=== PATIENT | male | born 1950 | race Two or more races ===

== ENCOUNTER 2016-07-16 04:18 | Emergency (ER) | payer SELFPAY ==
[~2016-07-16] VITALS: Ht 177.8 cm; Wt 68.0 kg
--- NOTE | 2016-07-16 04:20 | NUR ---
66 YO MALE BB RA. PT IS ALERT X 3, STATES HE CUT HIS WRIST BECAUSE HE MISSES HIS . PT ADMITS TO DRINKING WINE. PT AMBULATED TO ER BED, SKIN WARM AND DRY, RR EVEN AND UNLABORED. AWAITING ORDERS FROM PROVIDER,
[2016-07-16] MEDS ORDERED: TDAP [DIPH/PERTUSSIS/TET] 0.5 ML VIAL IM ONE ×2 (04:30→06:04)
--- NOTE | 2016-07-16 04:36 | NUR ---
LAB AT BED SIDE FOR BLOOD DRAW
[2016-07-16 04:40] LABS: BASOPHILS # (AUTO) 0.1 /CMM (0.0-0.2); BASOPHILS % (AUTO) 0.8 % (0.0-2.0); EOSINOPHILS # (AUTO) 0.2 /CMM (0.0-0.7); EOSINOPHILS % (AUTO) 1.8 % (0.0-6.0); HEMATOCRIT 40 % (39-51); HEMOGLOBIN 12.8 g/dL (13.5-17.5); LYMPHOCYTES # (AUTO) 1.6 /CMM (0.8-4.8); LYMPHOCYTES % (AUTO) 17.3 % (20.0-44.0); MEAN CORPUSCULAR HEMOGLOBIN 27 PG (26.0-33.0); MEAN CORPUSCULAR HGB CONC 32 g/dl (31.0-36.0); MEAN CORPUSCULAR VOLUME 82 fL (80-96); MONOCYTES # (AUTO) 0.7 /CMM (0.1-1.30); MONOCYTES % (AUTO) 7.2 % (2.0-12.0); NEUTROPHILS # (AUTO) 6.9 /CMM (1.8-8.9); NEUTROPHILS % (AUTO) 72.9 % (43.0-81.0); PLATELET COUNT (AUTO) 471 /CMM (150-450); RED BLOOD CELL COUNT(AUTO) 4.83 MIL/uL (4.5-6.0); WHITE BLOOD COUNT (AUTO) 9.5 K/uL (4.3-11.0)
[2016-07-16 04:52] LABS: CALCIUM, SERUM 8.4 mg/dL (8.5-10.1); CREATININE 0.6 mg/dL (0.6-1.3); POTASSIUM 3.5 mmol/L (3.5-5.1)
[2016-07-16 04:55] LABS: APPEARANCE,URINE CLEAR (CLEAR); BILIRUBIN,URINE NEGATIVE (NEGATIVE); BLOOD, URINE NEGATIVE Ery/uL (NEGATIVE); KETONES,URINE NEGATIVE (NEGATIVE); LEUKOCYTE ESTERASE ,URINE NEGATIVE (NEGATIVE); NITRITE, URINE NEGATIVE (NEGATIVE); PH,URINE 6.5 (5.0-8.0); PROTEIN,URINE NEGATIVE (NEGATIVE); UGLUCOSE NEGATIVE (NEGATIVE); UROBILINOGEN,URINE 0.2 EU/dL (0.2)
[2016-07-16 04:58] LABS: ALBUMIN 3.1 g/dL (3.4-5.0); BILIRUBIN,DIRECT 0.1 mg/dL (0.0-0.2); BILIRUBIN,TOTAL 0.4 mg/dL (0.2-1.0); SALICYLATE 11.9 mg/dL (2.8-20.0); TOTAL PROTEIN, SERUM 7.6 g/dL (6.4-8.2)
[2016-07-16 05:03] LABS: COLOR,URINE STRAW (YELLOW)
[2016-07-16 05:08] LABS: CANNABINOID, URINE NEGATIVE (NEGATIVE); PHENCYCLIDINE SCREEN,URINE NEGATIVE (NEGATIVE)
--- NOTE | 2016-07-16 05:16 | NUR ---
URINE SAMPLE OBTAINED AND SENT TO LAB
--- NOTE | 2016-07-16 06:18 | NUR ---
PT REFUSED MEDICATION
--- NOTE | 2016-07-16 07:30 | NUR ---
Patient is resting comfortably in bed with eyes closed. Easily aroused. VSS
--- NOTE | 2016-07-16 07:50 | NUR ---
PT AWAKE, ALERT AND ORIENTED. WITH FAMILY MEMBERS AT BS.
--- NOTE | 2016-07-16 08:50 | NUR ---
PT DECIDED TO LEAVE, DR. KHANNA MADE AWARE AND DISCHARGED PT WITH FAMILY MEMBERS.
--- NOTE | 2016-07-16 09:07 | NUR ---
Patient discharged to home in stable condition. Written and verbal after care instructions given. Patient/ family members verbalizes understanding of instruction.
[2016-07-16 09:09] VITALS: BP 140/88
== END 2016-07-16 09:10 | disposition home or self-care (01) ==
LOC: ER 04:23
DX: S60.812A Abrasion of left wrist, initial encounter (principal); S60.811A Abrasion of right wrist, initial encounter; F32.9 Major depressive disorder, single episode, unspecified; F10.129 Alcohol abuse with intoxication, unspecified; F10.20 Alcohol dependence, uncomplicated; X83.8XXA Intentional self-harm by other specified means, initial encounter; Y93.89 Activity, other specified; Y92.89 Other specified places as the place of occurrence of the external cause; Y99.8 Other external cause status
CPT/HCPCS: 36415; 80048; 80076; 80305; 80329; 81001; 85025; 90715; 99284; A4606; A6402; G0480 ×2; Z7610; 81000-TC; G6039-TC